=== PATIENT | female | born 1950 | race African-American/Black ===

== ENCOUNTER 2016-07-30 09:13 | Emergency (ER) | payer MEDICARE ==
[2016-07-30 09:52] LABS: BASOPHILS 0.2 % (0.0-2.0); IMMATURE GRANULOCYTES 0.2 % (0-5); LYMPHOCYTES 14.6 % (15-50); MCH 27.1 pg (26.0-34.0); MCHC 32.3 g/dL (31.0-37.0); MEAN PLATELET VOLUME 10.8 fL (7.4-10.4); MONOCYTES 7.9 % (2-11); NEUTROPHILS 75.1 % (40-80); RBC 3.69 10x6/uL (4.00-5.40); RDW 15.3 % (11.5-14.5); WBC 12.3 10x3/uL (4.8-10.8)
[2016-07-30 10:05] LABS: PLATELET COUNT 212 10x3/uL (130-400)
[2016-07-30 10:07] LABS: ALBUMIN 3.1 g/dL (3.4-5.0); ALKALINE PHOSPHATASE 153 U/L (46-116); ALT (SGPT) 16 U/L (10-68); CALC OSMOLALITY 289 mosm/kg (275-300); CALCIUM 8.7 mg/dL (8.5-10.1); CHLORIDE - SERUM 103 mmol/L (98-107); CREATININE - SERUM 1.3 mg/dL (0.6-1.3); GLUCOSE 192 mg/dL (74-106); POTASSIUM - SERUM 3.5 mmol/L (3.5-5.1); PROTEIN - SERUM 8.2 g/dL (6.4-8.2); SODIUM 141 mmol/L (136-145); UREA NITROGEN 24 mg/dL (7-18); eGFR NON AFRICAN AMERICAN 43 mL/min (90-120)
[2016-07-30 10:15] LABS: PRO BNP 310 pg/mL (0-125); TROPONIN-I < 0.017 ng/mL (0.000-0.060)
== END 2016-07-30 15:11 | disposition home or self-care (01) ==
LOC: D.ER 09:13
PROVIDERS: Emergency Medicine
DX: I50.9 Heart failure, unspecified (principal); I10 Essential (primary) hypertension; E11.9 Type 2 diabetes mellitus without complications; Z79.4 Long term (current) use of insulin

== ENCOUNTER → 2016-08-17 13:06 | Outpatient (CLI) | payer MEDICARE ==
[2016-08-17 14:00] LABS: INR 1.11 (0.85-1.17); PROTIME 14.2 SECONDS (11.6-15.0)
== END | disposition home or self-care (01) ==
LOC: D.LABREF 13:06
PROVIDERS: Family Medicine
DX: Z51.81 Encounter for therapeutic drug level monitoring (principal); Z79.01 Long term (current) use of anticoagulants; I50.9 Heart failure, unspecified